=== PATIENT | female | born 1975 | race Caucasian/White ===

== ENCOUNTER → 2024-12-23 13:36 | Outpatient (REF) | payer BC, SELFPAY | LOC: MRI 13:36 | PROVIDERS: ATTENDING PHYSICIAN Emergency Medicine | DX: M54.50 Low back pain, unspecified (principal); M53.3 Sacrococcygeal disorders, not elsewhere classified; G89.11 Acute pain due to trauma | CPT/HCPCS: 72148; 72195 ==

== ENCOUNTER → 2024-12-25 13:34 | Outpatient (REF) | payer BC, SELFPAY | LOC: HWRAD 13:34 | PROVIDERS: ATTENDING PHYSICIAN Emergency Medicine; REFERRING PHYSICIAN Obstetrics & Gynecology | DX: N89.8 Other specified noninflammatory disorders of vagina (principal) | CPT/HCPCS: 76830; 76856 ==

== ENCOUNTER → 2024-12-30 19:07 | Outpatient (REF) | payer BC, SELFPAY | LOC: WDC 19:07 | PROVIDERS: ATTENDING PHYSICIAN Obstetrics & Gynecology; FAMILY PHYSICIAN Family Medicine | DX: Z12.31 Encounter for screening mammogram for malignant neoplasm of breast (principal) | CPT/HCPCS: 77063; 77067 ==

== ENCOUNTER → 2025-01-09 12:00 | Outpatient (REF) | payer BC, SELFPAY | LOC: HWRAD 12:00 | PROVIDERS: ATTENDING PHYSICIAN Emergency Medicine | DX: N39.0 Urinary tract infection, site not specified (principal) | CPT/HCPCS: 76770 ==

== ENCOUNTER 2025-02-10 06:17 | Day surgery (SDC) | payer BC, SELFPAY ==
[2025-01-30 14:05] VITALS: BMI 25.5
--- NOTE | 2025-02-08 21:10 | W.CON.GYNONC ---
Chief Complaint
-
na
History of Present Illness
49 yr old female referred to us from Dr Avila because recent pelvic u/s and MRI show a 2.7 cm cervical lesion(multilocular cyst).
MRI suggests a Nabothians cyst and U/S suggests Nabothian Cyst vs pseudoneoplastic glandular lesion. They also see a 1 cm
widen of the endometrial lining at the fundus suggest polyp and 1.4 cm fibroid. She states at her exam they saw the mass at the
cervix but did not bx it because they were afraid of bleeding and she did have bleeding after the exam. She states her cycle are
monthly but did skip her cycle in November and had menes last week. She says they 7 days in length with 3 to 4 days heavy no
cramping, she denies bleeding between cycles or after intercourse. No previous information assurance analyst history, last pap 11/2023 normal. G 4 P3 one
miscarriage treated with D&E.
She does have a hx of Thyroid CA and treated with total thyroidectomy and lymph node dissection and radioactive Iodine, she has
had recent elevation in her labs and will be going to growth in several lymph nodes and has follow up with [facility] for biopsy in February.
PMH
kidney stones
Thyroid Cancer
colon polyps
reflux
Surgical
Thyroidectomy with lymph node dissection
lithotripsy for kidney stones
colonoscopy
D & E
ALL: NKDA
Meds:
Synthroid�175�mcg�tablet 01/26/2025 0 1�p.o.�q.�day
Past�Medical�History Thyroid�Cancer Kidney�stones GERD Surgical�History Dilation�and�Evacuation Removal�of�thyroid Biopsy
Medical History
Allergies
Allergies reflect when allergies were last updated in [employer].
No Known Allergies Allergy (Verified 02/03/25 08:13)
Physical Exam
Physical Exam
Pelvic Examination:
External normal labia, urethra, anus. V
agina: Normal mucosa.
Cervix: 2 cm polyp(mass) coming through the cervical os Able to get the cervical brush around the mass and the cervix
Uterus: normal size.
Adnexa: No pelvic mass.
RVE: no masses or nodularity
Well developed, well nourished patient.
small lymph node palpated right side near previous scar
No respiratory distress.
Regular rate. Regular rhythm.
Right Breast: No masses or dimpling. No nipple discharge.
Left Breast: No masses or dimpling. No nipple discharge.
Abdomen is soft. Non�tender to palpation. Non�distended.
No edema.
Normal range of motion.
Respiratory: Clear and Non Labored Respirations
Cardiac: S1/S2 and Regular Rhythm
GI: Soft, Non Tender and Non Distended
Impression / Plan
-
cervical mass and uterine polyp
1. reviewed MRI, pelvic u/s and exam to patient.
2. discussed with patient need for additional information on the masses seen and this would require a biopsy which would be done
surgically as outpatient, We would recommend an exam under anesthesia with a cold knife cone biopsy of the cervix and D & C
hysteroscopy with polypectomy. Explained this would be sent to pathology and once we have those results could make a paln if
additional treatment would be needed. Discussed risks and benefits of the surgery and she is agreeable to the surgery. Consents
were reviewed with patients all questions answered and consents were signed
3. pap done and pre op labs ordered
[2025-02-10] VITALS (9 sets, daily range): BP systolic 105–132; BP diastolic 44–76; BMI 25.5
[2025-02-10] MEDS: CELEBREX 200 MG PO (10:45)
[2025-02-10] MEDS: TYLENOL 1000 MG PO (10:46)
[2025-02-10] MEDS: NEURONTIN 300 MG PO (10:46)
[2025-02-10] MEDS: NORMOSOL-R/PLASMALYTE-A 1000 IV (10:46)
[2025-02-10] MEDS: HEPARIN 5000 UNITS SC (11:44)
--- NOTE | 2025-02-10 14:16 | OR.RPT ---
Operative Report
Operative Report
Date of procedure: February 10, 2025
Preoperative diagnosis: Cervical mass, endometrial polyp
Postoperative diagnosis: Same
Procedure:
Exam under anesthesia with resection of cervical mass
Dilation and curettage with hysteroscopy, MyoSure resection of polyp
LEEP conization of cervix
Surgeon: Daniel Martinez
Assist: Harpreet Valverde PA-C
Anesthesia: General LMA intubation, paracervical block
Complication: None
Estimated blood loss: 15 cc
Procedure in detail this patient was taken to the operating room and placed in supine position. General anesthesia was administered and LMA intubation was performed. She was placed in lithotomy position using yellowfin stirrups and prepped on the
abdomen perineum and vagina and upper thighs she was draped. Timeout procedure was completed next she was draped. External genitalia including anus ureter and vulva appear normal small 3 mm nevus is present on labia majora. Vagina is without any
abnormal lesions. Stay sutures were placed at 3 and 9:00 positions around the cervix. Paracervical block was performed with 10 cc mixture of 1% lidocaine and Pitressin at 5 and 7:00 locations in addition some of the same mixture was injected in
the stroma of the cervix. Cervix appears parous, ectocervix is dilated and there is a 2 cm cystic polypoid mass present at the cervical os that has a thick 7 to 8 mm dark attached to right endocervical canal. I grasped this polypoid mass after
placement of weighted speculum and posterior fornix, the cervix anterior lip was grasped with single-tooth tenaculum, I used an electrocautery to cut across the base of the polypoid mass and submitted as a cervix mass. Following this cervical canal
was dilated. The uterus sounded to 10 cm. Hysteroscope was introduced, there was polypoid tissue on the right aspect of the uterine cavity, both tubal ostia were visualized. I used MyoSure lite to shave the polypoid tissue and also shave some of
the endometrium. Next sharp curettage of the endometrial canal was performed and [facility] was submitted to pathology. I was able to feel a sharp cry across all endometrial surfaces and no residual lesion was left behind. Following this 10 mm loop was
used to excise anterior and posterior lip of the cervix and similarly the same loop was used to excise anterior and posterior endocervical tissue. Good hemostasis was present. I used a rollerball to cauterize the entire conization bed. Monsel
solution was applied to the bed of the conization and a 2 inch piece of Surgicel was inserted in the conization bed. Stay sutures were cut all instruments were removed patient was awakened extubated and returned back to recovery room stable awake
and extubated condition. Counts of laps instruments and needle was correct x 2. I was present and scrubbed for entire procedure as dictated above
Disposition: To PACU, stable awake and extubated
== END 2025-02-10 14:45 | disposition home or self-care (01) ==
LOC: SDS 06:17
PROVIDERS: ATTENDING PHYSICIAN Obstetrics & Gynecology Gynecologic Oncology; FAMILY PHYSICIAN Family Medicine
DX: N88.8 Other specified noninflammatory disorders of cervix uteri (principal); N72 Inflammatory disease of cervix uteri
CPT/HCPCS: 58558; 57522; 88305; 88307; 86850; 86900; 86901

== ENCOUNTER 2025-03-17 06:35 | Day surgery (SDC) | payer BC, SELFPAY | END 2025-03-17 11:35 | disposition home or self-care (01) | LOC: GI 06:35 | PROVIDERS: ATTENDING PHYSICIAN Internal Medicine Gastroenterology; FAMILY PHYSICIAN Family Medicine | DX: Z12.11 Encounter for screening for malignant neoplasm of colon (principal); K57.30 Diverticulosis of large intestine without perforation or abscess without bleeding; K64.8 Other hemorrhoids; R12 Heartburn; K44.9 Diaphragmatic hernia without obstruction or gangrene; D12.0 Benign neoplasm of cecum; K31.89 Other diseases of stomach and duodenum; Z86.0100 Personal history of colon polyps, unspecified | CPT/HCPCS: 45380; 43239; 88305; 88342 ==